=== PATIENT | male | born 1960 | race Caucasian/White ===

== ENCOUNTER → 2016-11-08 | Outpatient (CLI) | payer MEDICAID, OTHER ==
--- NOTE | 2016-11-08 09:06 | US ---
Ultrasound of the Abdomen, Limited History: Chronic hepatitis C. (K 73.2) Findings: Pancreas: Homogeneous without peripancreatic fluid or ductal dilatation. Liver: Mild diffuse increase in echogenicity without definite focal lesions. Possible mild hepatic st eatosis. Normal size. There is normal color flow doppler pattern of the portal vein.. Gallbladder: No shadowing calculi, wall thickening, or pericholecystic fluid. The patient was not sig nificantly tender over the gallbladder fossa. Common bile duct is normal measuring 5 mm in diameter. Right Kidney: Normal without hydronephrosis. Aorta: Visualized upper abdominal aorta demonstrates no aneurysm. Intrahepatic IVC: Normal Impression: 1. Mild increased echogenicity of the liver diffusely suggestive of mild hepatic steatosis. No focal liver lesions seen.
--- NOTE | 2016-11-08 10:43 | MR ---
MRI Lower Extremity, Left Knee History: Left knee pain and swelling. ICD 10 code M25.562. Comparison: July 2016 radiograph. Technique: MRI was performed of the left knee using a 1.5 [employer] MRI system. Axial, sagittal, and shante nal images were obtained with standard imaging sequences. Findings: General: Moderate suprapatellar joint effusion. Thickened suprapatellar plica. 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 Ligaments and Tendons: Anterior cruciate and posterior cruciate ligaments are intact. Medial collater al ligament is intact. Pes anserinus is unremarkable. Mild edema superficial to the iliotibial band w ithout attenuation. Fibular collateral ligament and biceps femoris are unremarkable. Loose body is se en along a recess along the musculotendinous junction of the popliteus measuring 9 mm. Popliteus tend on is intact. Menisci and Cartilage: Complex tear of the medial meniscus. This includes a diminutive appearance to the posterior horn and body with a large displaced meniscal fragment superior to the meniscal root me asuring 9 mm. There is upper surface tear and maceration of the remaining posterior horn and body to the upper surface. There is also upper surface tear in the anterior horn. Full-thickness cartilage lo ss is seen involving a large portion of the weightbearing portion of the medial compartment with reac tive subarticular bone marrow edema and sclerosis. Probable parameniscal cyst along the medial aspect of the medial tibial plateau. No evidence for lateral meniscal tear. No significant cartilage attenuation in the lateral compartmen t. Extensor Mechanism: Cartilage signal abnormality is seen in the patella with thinning more predominan t along the inferior median ridge. There is also more focal area of thinning in the superior central trochlear groove. Quadriceps tendon and patellar tendon are unremarkable. Impression: 1. Complex tear of the posterior horn and body of the medial meniscus with a displaced meniscal fragm ent superior to the meniscal root. There is also an upper surface tear in the anterior horn. 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 2. 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 3. Mild strain iliotibial band. 4. Moderate suprapatellar joint effusion. Loose body along the musculotendinous junction of the popli teus. Francis cyst.
== END ==
LOC: FIMAGING 07:48
PROVIDERS: ATTEND Nurse Practitioner
DX: K76.9 Liver disease, unspecified (principal); M25.562 Pain in left knee; M71.20 Synovial cyst of popliteal space [Baker], unspecified knee; M23.222 Derangement of posterior horn of medial meniscus due to old tear or injury, left knee; M25.462 Effusion, left knee; M23.212 Derangement of anterior horn of medial meniscus due to old tear or injury, left knee; M22.42 Chondromalacia patellae, left knee